=== PATIENT | male | born 1955 | race Caucasian/White ===

== ENCOUNTER 2017-06-16 07:50 | Day surgery (SDC) | payer OTHER ==
[~2017-06-16] VITALS: Ht 170.2 cm; Wt 82.3 kg
[~2017-06-16 07:50] MED LIST: Hair, Skin & N1 EACH; ROSU10TA; UBID10
== END 2017-06-16 09:55 | disposition home or self-care (01) ==
LOC: ORSCSDS 07:50
PROVIDERS: Internal Medicine Gastroenterology
PROC: 0DJD8ZZ Inspection of Lower Intestinal Tract, Via Natural or Artificial Opening Endoscopic (ICD-10-PCS; principal; 2017-06-16 09:15)
DX: Z12.11 Encounter for screening for malignant neoplasm of colon (principal); K57.30 Diverticulosis of large intestine without perforation or abscess without bleeding; K64.8 Other hemorrhoids
CPT/HCPCS: J7120

== ENCOUNTER → 2024-05-27 | Outpatient (CLI) | payer OTHER | LOC: LAB SHORT 19:30 → LAB 19:30 | DX: R30.0 Dysuria (principal) | CPT/HCPCS: 87086 ==